=== PATIENT | male | born 2000 | race Caucasian/White ===

== ENCOUNTER 2024-06-04 17:39 | Emergency (ER) | payer OTHER ==
[~2024-06-04] VITALS: Ht 180.3 cm; Wt 98.2 kg
[2024-06-04 17:40] VITALS: BP 134/60; O2SAT 98
[2024-06-04] MEDS: ACETAMINOPHEN 500 MG TAB PO ONE (21:20)
[2024-06-04 22:36] VITALS: TEMP 100.8
[2024-06-04 22:45] LABS: BASO % 0.5 % (0.0-1.0); EOS # 0.1 10^3/uL (0.0-0.5); EOS % 1.2 % (0.0-3.0); HEMOGLOBIN 13.8 g/dl (13.5-17.5); LYMPH # 0.8 10^3/uL (1.5-5.0); LYMPH % 13.4 % (24.0-44.0); MEAN CORPUSCULAR HEMOGLOBIN 30.4 pg (27.0-33.0); MEAN CORPUSCULAR HGB CONC 34.5 g/dl (32.0-36.5); MEAN CORPUSCULAR VOLUME 88.1 fl (80.0-96.0); NEUTROPHILS # 3.9 10^3/uL (1.5-8.5); NEUTROPHILS % 67.6 % (36.0-66.0); PLATELET COUNT, AUTOMATED 145 10^3/uL (150-450); RED BLOOD COUNT 4.54 10^6/uL (4.30-6.10); WHITE BLOOD COUNT 5.8 10^3/uL (4.0-10.0)
[2024-06-04 23:09] LABS: ALBUMIN 4.1 G/DL (3.2-5.2); ALKALINE PHOSPHATASE 93 U/L (46-116); ALT/SGPT 36 U/L (7.0-40); AST/SGOT 19 U/L (<34); BILIRUBIN,DIRECT 0.6 MG/DL (<0.4); BILIRUBIN,TOTAL 1.8 MG/DL (0.3-1.2); BLOOD UREA NITROGEN 11 MG/DL (9-23); CARBON DIOXIDE LEVEL 24 MMOL/L (20-31); CHLORIDE LEVEL 106 MMOL/L (98-107); CREATININE FOR GFR 1.03 MG/DL (0.70-1.30); GLOMERULAR FILTRATION RATE > 60.0 (>60); GLUCOSE, FASTING 96 MG/DL (60-100); SODIUM LEVEL 138 MMOL/L (136-145); TOTAL PROTEIN 6.9 G/DL (5.7-8.2)
[2024-06-04 23:12] LABS: MONO SCRN NEGATIVE (NEGATIVE)
[2024-06-04] MEDS: CEPHALEXIN 500 MG CAP PO ONE (23:20)
[2024-06-04] MEDS ORDERED: CEPH500C PO (23:22)
== END 2024-06-04 23:37 | disposition home or self-care (01) ==
LOC: M ED 17:39
DX: J02.9 Acute pharyngitis, unspecified (principal); Z79.2 Long term (current) use of antibiotics

== ENCOUNTER 2024-09-25 13:54 | Emergency (ER) | payer OTHER ==
[~2024-09-25] VITALS: Ht 180.3 cm; Wt 88.9 kg
[~2024-09-25 13:54] MED LIST: CEPH500C PO
[2024-09-25] MEDS ORDERED: KETOROLAC 60MG 2ML VIAL IM ONE (14:25)
[2024-09-25] MEDS: diazePAM 5MG TABLET PO ONE (14:33)
[2024-09-25] MEDS: LIDOCAINE 5% (LIDODERM) PATCH TD ONE (14:33)
[2024-09-25] MEDS: IBUPROFEN 600MG TAB PO ONE (14:43)
[2024-09-25] MEDS ORDERED: LIDO5DIS41 TOP (15:41)
[2024-09-25] MEDS ORDERED: TIZA4CAP PO (15:41)
[2024-09-25 15:51] VITALS: BP 129/71; TEMP 98; O2SAT 99
== END 2024-09-25 15:52 | disposition home or self-care (01) ==
LOC: M ED 13:54
DX: S23.3XXA Sprain of ligaments of thoracic spine, initial encounter (principal); Y92.9 Unspecified place or not applicable; Y93.9 Activity, unspecified; Y99.9 Unspecified external cause status; F10.10 Alcohol abuse, uncomplicated; Z79.899 Other long term (current) drug therapy